=== PATIENT | female | born 1990 | race Caucasian/White ===

== ENCOUNTER 2019-12-21 12:05 | Outpatient (CLI) | payer MEDICAID, SELFPAY ==
[2019-12-21 12:56] LABS: Beta HCG Quantitative < 2.39 mIU/ML
[2019-12-21 13:05] LABS: Free T4 Free Thyroxine 0.82 ng/mL (0.78-2.19)
[2019-12-26 21:36] LABS: FSH 4.2 mIU/mL (***); Progesterone 10.1 ng/mL (***); Prolactin 8.6 ng/mL (***)
[2019-12-27 18:41] LABS: Estradiol, Ultrasensitive 96 pg/mL
== END 2019-12-21 12:06 | disposition home or self-care (01) ==
PROVIDERS: PCP Family Medicine; Visit Provider Family Medicine
DX: N64.3 Galactorrhea not associated with childbirth (principal); N39.0 Urinary tract infection, site not specified; R35.0 Frequency of micturition
CPT/HCPCS: 36415; 82670; 83001; 84144; 84146; 84439; 84443; 84702

== ENCOUNTER 2020-03-23 23:09 | Emergency (ER) | payer OTHER, SELFPAY ==
[2020-03-23 23:12] VITALS: BP 117/73; PULSE 72; RESP 14; TEMP 36.6; O2SAT 97
[2020-03-24] MEDS: KETOROLAC (*BKC) 60 MG/2 ML VIAL IM (00:01)
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
[2020-03-24 00:22] VITALS: BP 120/84; PULSE 70; RESP 20; O2SAT 99
== END 2020-03-24 00:24 | disposition home or self-care (01) ==
PROVIDERS: Emergency Provider Emergency Medicine; PCP Family Medicine
DX: T14.8XXA Other injury of unspecified body region, initial encounter (principal); V49.40XA Driver injured in collision with unspecified motor vehicles in traffic accident, initial encounter
CPT/HCPCS: 96372; 99283; J1885

== ENCOUNTER 2020-05-27 16:07 | Emergency (ER) | payer OTHER, SELFPAY ==
[2020-05-27 16:18] VITALS: BP 109/64; PULSE 93; RESP 16; TEMP 37.3; O2SAT 100
--- NOTE | 2020-05-27 17:10 | ED.EYEPROB ---
HPI - Eye Problem General Chief complaint: Eye Problems Stated complaint: Eye Pain History of Present Illness HPI Narrative: This is a 29-year-old white female who presented to the urgent care today with redness and itching to her left eye and generalized contact dermatitis. According to patient 3 days ago she started developing redness in her left eye. Today she started experiencing itchiness to the left eye. She also noted that her has also started experiencing itchiness to one of his eyes. Patient denies any visual disturbance, eyelid sticking crusting or discharge. She also complains of a generalized rash on her abdominal area upper thighs and armpit with itching . No crusting, oozing, scaling noted..the patient denies SOB, CP, palpitation, extremity numbness, lightheadedness, dizziness, constipation, diarrhea, chills, or fever. Related Data Home Medications Medication Instructions Recorded Confirmed venlafaxine [Effexor XR] 75 mg PO DAILY 05/27/20 05/27/20 Allergies Allergy/AdvReac Type Severity Reaction Status Date / Time Control Pills Allergy Intermediate LIVER Uncoded 05/27/20 16:29 PROBLEM Review of Systems Review of Systems: All systems reviewed & are unremarkable except as noted in HPI and below (10 point system review) [facility] Past Medical History Medical History (Updated 05/27/20 @ 17:06 by DEANA Darden) Anxiety Depression Scoliosis Surgical History Surgical History (Updated 07/20/19 @ 02:37 by Gil Diane) History of classical section History of tonsillectomy Social History Social History (Updated 07/20/19 @ 02:37 by Gil Diane) Smoking status: Never smoker Second hand tobacco smoke exposure: Yes Gender identity (if verbalized by the patient): Female Exam Narrative: Exam Narrative: GENERAL: This is a well-nourished, well-developed patient, in no apparent distress. HEAD: normocephalic, atraumatic. EYES: Left eye with erythema and edema to the conjunctival vision is grossly intact. EARS: External ears normal, auditory canals clear and without drainage, TMs normal without perforation. Hearing grossly intact. NOSE: External nose normal with no obvious nasal discharge, nares without redness, no rhinorrhea. THROAT: Mucous membranes moist, posterior pharynx clear. NECK: Neck supple, non-tender without lymphadenopathy, masses or thyromegaly. CARDIOVASCULAR: Regular rate and rhythm without murmurs, gallops, or rubs. RESPIRATORY: Clear to auscultation. Breath sounds equal bilaterally. No wheezes, rales, or rhonchi. GASTROINTESTINAL: Abdomen soft, non-tender, nondistended. Bowel sounds are active. No hepato-splenomegaly, or palpable masses. No guarding. SKIN: warm, intact small papules on abd, upper thigh and armpit NEURO: awake, alert, and oriented to person, place and time. There were no obvious focal neurologic abnormalities. Steady gait EXTREMITIES: Normal range of motion. No edema. No calf tenderness. Negative Homans sign bilaterally. BACK: Nontender without deformity or crepitance. No flank tenderness. Course Vital Signs Vital signs: Vital Signs Temperature 99.2 F 05/27/20 16:18 Pulse Rate 93 05/27/20 16:18 Respiratory Rate 16 05/27/20 16:18 Blood Pressure 109/64 05/27/20 16:18 Pulse Oximetry 100 05/27/20 16:18 Temperature 99.2 F 05/27/20 16:18 Pulse Rate 93 05/27/20 16:18 Respiratory Rate 16 05/27/20 16:18 Blood Pressure 109/64 05/27/20 16:18 Pulse Oximetry 100 05/27/20 16:18 MDM - Eye Problem Differential Diagnosis Differential diagnosis: Likely corneal abrasion, conjunctivitis, acute iritis, periorbital cellulitis and other (contact dermatitis) Discharge Plan Discharge Clinical Impression: Conjunctivitis Qualifiers: Conjunctivitis type: acute Acute conjunctivitis type: unspecified Laterality: left Qualified Code(s): H10.32 - Unspecified acute conjunctivitis, left eye Contact dermatitis Qualifie
== END 2020-05-27 17:10 | disposition home or self-care (01) ==
PROVIDERS: Emergency Provider Nurse Practitioner
DX: H10.32 Unspecified acute conjunctivitis, left eye (principal); L25.9 Unspecified contact dermatitis, unspecified cause; F41.9 Anxiety disorder, unspecified; F32.9 Major depressive disorder, single episode, unspecified; M41.9 Scoliosis, unspecified
CPT/HCPCS: 99213; G0463

== ENCOUNTER 2021-06-17 16:08 | Emergency (ER) | payer OTHER, SELFPAY ==
[2021-06-17 16:28] VITALS: BP 119/60; PULSE 94; RESP 16; TEMP 37.4; O2SAT 100
== END 2021-06-17 17:10 | disposition left against medical advice (07) ==
PROVIDERS: Emergency Provider Internal Medicine Hematology & Oncology; PCP Family Medicine
DX: Z53.21 Procedure and treatment not carried out due to patient leaving prior to being seen by health care provider (principal)
CPT/HCPCS: 99199

== ENCOUNTER 2021-09-09 10:54 | Emergency (ER) | payer OTHER, SELFPAY ==
[2021-09-09 11:04] VITALS: BP 108/77; PULSE 90; RESP 16; TEMP 36.4; O2SAT 99
--- NOTE | 2021-09-09 11:04 | ED.EAR ---
HPI - Ear Problem General Chief complaint: Ear Stated complaint: ear pain Time Seen by Provider: 09/09/21 11:15 Source: patient Mode of arrival: ambulatory Limitations: no limitations History of Present Illness HPI Narrative: 31-year-old female presented for complaint of bilateral ear pain for about 1 day. Right worse than left, pain is described as pressure. She has been taking aerw-ckn-[id number] unknown congestion medication without relief. Patient states she brought her son here for ear pain and wanted to be checked as well. Denies headache, tinnitus, vertigo, sore throat, nausea, vomiting, cough, fever or chills. MD Complaint: ear pain Related Data Home Medications Medication Instructions Recorded Confirmed venlafaxine [Effexor XR] 75 mg PO DAILY 05/27/20 09/09/21 Allergies Allergy/AdvReac Type Severity Reaction Status Date / Time Control Pills Allergy Intermediate LIVER Uncoded 09/09/21 11:00 PROBLEM Review of Systems Review of Systems: CONSTITUTIONAL: Denies malaise, chills, or fever. EYES: Denies visual changes, redness, or discharge. ENT: Denies rhinorrhea, congestion, sinus pain, and sore throat. Reports ear pain CARDIOVASCULAR: Denies chest pain, palpitations, or edema. RESPIRATORY: Denies cough or dyspnea. GASTROINTESTINAL: Denies abdominal pain, nausea, vomiting, diarrhea SKIN: Denies rash or itching. MUSCULOSKELETAL: Denies myalgia. NEUROLOGIC: Denies headache. All systems reviewed & are unremarkable except as noted in HPI and below PMFSH Past Medical History Medical History (Updated 09/09/21 @ 11:21 by Lupe Schmidt APRN) Anxiety Depression Scoliosis Surgical History Surgical History History of classical section History of tonsillectomy Social History Social History Smoking status: Never smoker Second hand tobacco smoke exposure: Yes Gender identity (if verbalized by the patient): Female Comments At time of signature, agree with nursing past medical, surgical, social and family history. There is no relevant family history pertinent to the presenting complaint Exam Narrative: GENERAL: Well-appearing, well-nourished, and in no acute distress. HEAD: Normocephalic EYES: PERRLA, conjunctivae clear ENT: Nares clear. Mucous membranes moist. TM pearly mary with with light reflex bilaterally; no tragal tenderness. Oropharynx not erythematous without lesions or without exudate, no drooling, no hoarseness, no trismus, uvula midline. NECK: Supple. No lymphadenopathy CHEST: Clear to auscultation, breath sounds equal. No wheezing, rhonchi, rales, or stridor. No respiratory distress, speaks in full sentences. HEART: Regular rate and rhythm. No murmur heard. SKIN: Warm, dry, no rash. NEURO: Alert and oriented x3. PSYCH: Normal mood and affect Course Course Emergency Course: Patient is aware of diagnosis, understands and agrees to treatment plan. Anticipatory guidance given. Patient agrees to follow-up as directed and is aware of reasons to seek care at the emergency department. Portions of this record may have been created with voice recognition software Level of Care: Express Care Visit Vital Signs Vital signs: Reviewed Medical Decision Making MDM Narrative Medical decision making narrative: Differential diagnosis considered: Coronavirus, strep pharyngitis, allergic rhinitis, upper respiratory tract infection, sinusitis, rhinosinusitis, nasopharyngitis, viral pharyngitis, otitis media, otitis externa, eustachian tube dysfunction, foreign body, cerumen impaction. Exam findings show no acute concerns or changes; patient is non-toxic appearing and is in no distress. Patient is appropriate for outpatient treatment and follow-up. Discharge Plan Discharge Clinical Impression: Acute otalgia Qualifiers: Laterality: bilateral Qualified Code(s): H92.03 - Otalg
== END 2021-09-09 11:36 | disposition home or self-care (01) ==
PROVIDERS: Emergency Provider Nurse Practitioner Family; PCP Family Medicine
DX: H92.03 Otalgia, bilateral (principal); F41.9 Anxiety disorder, unspecified; F32.A Depression, unspecified
CPT/HCPCS: 99212; G0463

== ENCOUNTER 2022-10-03 16:23 | Emergency (ER) | payer OTHER, SELFPAY ==
--- NOTE | ~2022-10-03 | US_ITS ---
EXAMINATION: US OB <=14 wk fetus w TV DATE: 10/03/2022 23:24 INDICATION: Pain and vaginal bleeding during first trimester . TECHNIQUE: Real-time pelvic ultrasound utilizing both a transvaginal and transabdominal probe was pe rformed. The interpreting radiologist was not present for the study. COMPARISON: None. FINDINGS: The retroverted uterus measures 7.0 x 4.9 x 3.3 cm. Endometrial complex measures 8 mm in maximal thi ckness at the fundus. No evident intrauterine fluid or gestational sac. The right ovary measures 2.3 x 1.2 x 2.5 cm. The left ovary measures 2.0 x 1.9 x 1.4 cm. Vascular lizzeth w identified in both ovaries on color Doppler. No other abnormal adnexal masses identified. Trace michele unt of likely physiologic free fluid in the cul-de-sac. IMPRESSION: 1. Unremarkable pelvic ultrasound with no evident intrauterine gestational sac. Differential would in clude early, failed or ectopic . Reviewed, dictated and finalized at location A. 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 Unremarkable pelvic ultrasound with no evident intrauterine gestational sac. Differential would include early, failed or ectopic .
[2022-10-03 16:52] VITALS: BP 117/84; PULSE 102; RESP 20; TEMP 36.7; O2SAT 100
[2022-10-03 17:09] LABS: Basophils Percent Auto 0.4 % (0.2-1.2); Eosinophils Absolute Auto 0.1 K/mm3 (0-0.3); Eosinophils Percent Auto 1.4 % (0-4.4); Hematocrit 33.6 % (37.0-47.0); Hemoglobin 11.4 g/dL (12.0-15.0); Immature Granulocyte Absolute 0.01 K/mm3 (0.00-0.031); Immature Granulocyte Percent A 0.2 % (0-0.5); Lymphocytes Absolute Auto 1.11 K/mm3 (0.9-3.2); Lymphocytes Percent Auto 19.9 % (18.3-44.2); Mean Corpuscular HGB Conc 33.9 g/dl (32-36); Mean Corpuscular Hemoglobin 29.9 pg (26-34); Mean Corpuscular Volume 88.2 fl (80-100); Mean Platelet Volume 8.8 fl (7.4-10.4); Monocytes Absolute Auto 0.3 K/mm3 (0.1-0.6); Monocytes Percent Auto 5.7 % (2.6-8.5); Neutrophils Percent Auto 72.4 % (45.5-73.1); Platelet Count Result 241 k/mm3 (150-375); Red Blood Count 3.81 M/mm3 (4.2-5.4); Red Cell Distribution Width 13.7 % (11.5-14.5); White Blood Count 5.6 K/mm3 (4.5-10.0)
[2022-10-03 17:37] LABS: Beta HCG Quantitative 214.54 mIU/ML
[2022-10-03 18:50] VITALS: BP 109/85; PULSE 101; RESP 20; TEMP 36.6; O2SAT 100
[2022-10-03] MEDS: SODIUM CHLORIDE 0.9% IV 1,000 ML 999 ML IV CONT (22:37)
--- NOTE | 2022-10-03 22:38 | ED.PREGNANCY ---
HPI - General Chief complaint: Vaginal Bleeding Stated complaint: I had an 09/10, still bleeding Time Seen by Provider: 10/03/22 22:07 Source: patient Mode of arrival: ambulatory Limitations: no limitations History of Present Illness HPI Narrative: Patient is a 32-year-old female who presents to the ED with report of vaginal bleeding. Patient had an elective with pills at approx 6 weeks gestation on 09/10/22 through the [facility] in [place], [place]. With that , patient would have been A3 (1 prior miscarriage, 1 prior elective 2 years ago). She reports she developed vaginal bleeding a few days after taking the pills, which became heavier 2 weeks later. Patient has had persistent vaginal bleeding since then, intermittently heavy with clots, and at times only spotting. Patient also reports feeling mildly dizzy and having intermittent lower abdominal pain. Patient took another test at home today which was positive which prompted her presentation. Patient states she did not f/u with the clinic after the . She has seen Dr. Ovidio Rincon in the past. Patient denies fever, N/V, urinary sx's. Related Data Home Medications Medication Instructions Recorded Confirmed venlafaxine 75 mg capsule,extended 75 mg PO DAILY 05/27/20 09/09/21 release 24 hr (Effexor XR) Allergies Allergy/AdvReac Type Severity Reaction Status Date / Time Control Pills Allergy Intermediate LIVER Uncoded 09/09/21 11:00 PROBLEM Review of Systems Review of Systems: CONSTITUTIONAL: Denies fever, chills, or sweats. CARDIOVASCULAR: Denies chest pain. RESPIRATORY: Denies dyspnea. GASTROINTESTINAL: See HPI. GENITOURINARY: See HPI. NEUROLOGIC: See HPI. All systems reviewed & are unremarkable except as noted in HPI and below PMFSH Past Medical History Medical History Anxiety Depression Scoliosis Surgical History Surgical History History of classical section History of tonsillectomy Social History Social History Smoking status: Never smoker Second hand tobacco smoke exposure: Yes Gender identity (if verbalized by the patient): Female Exam Narrative: GENERAL: Well appearing, well-nourished, non-toxic, in no acute distress. HEAD: Normocephalic, atraumatic. NECK: Supple. No adenopathy, no masses. RESPIRATORY: Airway patent, respirations nonlabored. Clear to auscultation bilaterally, no rales, rhonchi, wheezing. CARDIOVASCULAR: Regular rate and rhythm without murmurs, rubs, or gallops. Peripheral pulses 2+ and equal bilaterally. ABDOMINAL: Soft, minimal tenderness throughout lower abdomen, nondistended, no hepatosplenomegaly. Normoactive BS. PELVIC: Normal external genitalia. Minimal amount of vaginal bleeding, light pink. No clots seen. Cervix w/o any significant abnormalities, though difficult to visualize entirety of cervix. No abnormal discharge. No significant CMT. MUSCULOSKELETAL: Moves all extremities. Strength/ROM intact without gross deformities. SKIN: Warm, dry, normal color. No rashes. NEURO: A&O X3. Speech clear. Cranial nerves II-XII grossly intact. Steady gait. No ataxic movements. PSYCHIATRIC: Appropriate mood and affect. Normal interaction. Course Vital Signs Vital signs: Vital Signs Temperature 98.1 F 10/03/22 16:52 Pulse Rate 102 H 10/03/22 16:52 Respiratory Rate 20 10/03/22 16:52 Blood Pressure 117/84 10/03/22 16:52 Pulse Oximetry 100 10/03/22 16:52 Oxygen Delivery Room Air 10/03/22 16:52 Temperature 97.8 F 10/03/22 18:50 Pulse Rate 101 H 10/03/22 18:50 Respiratory Rate 20 10/03/22 18:50 Blood Pressure 109/85 10/03/22 18:50 Pulse Oximetry 100 10/03/22 18:50 Oxygen Delivery Room Air 10/03/22 16:52 MDM - OB/Uterine Co
[2022-10-04 00:49] LABS: Appearance Urine Cloudy (Clear); Bacteria Urine Rare /hpf; Bilirubin Urine Negative (Negative); Blood Urine 3+ (Negative); Color Urine Yellow (Yellow); Glucose Urine UA Negative (Negative); Ketones Urine Negative (Negative); Leukocyte Esterase Ur 2+ LEU/UL (Negative); Nitrate Urine Negative (Negative); Non Pathogenic Casts 0-2; Protein Urine Trace mg/dL (Negative); RBC Urine >100 /hpf (0-2); Specific Grav Ur 1.017 (1.001-1.035); Squamous Epithelial Cell Urine Few /hpf (Few); Urobilinogen Urine 0.2 mg/dL (<2.0); WBC Urine >100 /hpf; pH Urine 5.5 (5.0-9.0)
[2022-10-04 00:51] LABS: Alanine Aminotransferase 25 U/L (6-35); Albumin Level 3.4 g/dL (3.5-5.1); Alkaline Phosphatase 76 U/L (38-126); Anion Gap 1 mmol/L (8-16); Aspartate Amino Transferase 26 U/L (14-36); Bilirubin,Total 0.4 mg/dL (0.2-1.3); Blood Urea Nitrogen 7 mg/dL (7-17); Calcium 7.7 mg/dL (8.4-10.2); Carbon Dioxide 29 mmol/L (22-30); Chloride 105 mmol/L (98-107); Estimated CRCL calculation 103 ml/min; Estimated Glomerular Filt Rate > 60; Glucose 89 mg/dL (65-110); Potassium 3.4 mmol/L (3.4-5.0); Sodium 135 mmol/L (137-145)
[2022-10-04 01:14] LABS: Add Urine Microscopic? YES
== END 2022-10-04 01:58 | disposition home or self-care (01) ==
PROVIDERS: Emergency Medicine; Emergency Provider Physician Assistant; PCP Family Medicine
DX: O07.4 Failed attempted termination of pregnancy without complication (principal); N39.0 Urinary tract infection, site not specified; F41.9 Anxiety disorder, unspecified; F32.A Depression, unspecified
CPT/HCPCS: 36415; 76801; 76817; 80053; 81001; 84702; 85025; 85461; 86850; 86900; 86901; 87086; 96361; 96365; 96374; 96375; 99284; J0131; J0696; J7030

== ENCOUNTER 2022-10-05 16:52 | Outpatient (CLI) | payer OTHER, SELFPAY ==
[2022-10-05 17:32] LABS: Beta HCG Quantitative 149.49 mIU/ML
== END 2022-10-05 16:53 | disposition home or self-care (01) ==
PROVIDERS: PCP Family Medicine; Visit Provider Physician Assistant
DX: O20.0 Threatened abortion (principal)
CPT/HCPCS: 36415; 84702

== ENCOUNTER 2022-10-08 00:14 | Day surgery (SDC) | payer OTHER, SELFPAY ==
--- NOTE | 2022-10-07 07:48 | PM.IMHP ---
H&P: HPI History of Present Illness Date/Time: 10/07/22 07:48 Chief Complaint: incomplete baby Narrative: sit 32-year-old multiparous patient who underwent TAB via oral medication with an incomplete miscarriage. Ultrasound shows fluid in possible debris in the uterus and she continues to bleed. She will undergo suction dilatation curettage for completion of this procedure. PMFSH Past Medical History Medical History Anxiety Depression Scoliosis Surgical History Surgical History History of classical section History of tonsillectomy Social History Social History Smoking status: Never smoker Second hand tobacco smoke exposure: Yes Gender identity (if verbalized by the patient): Female Meds Home Medications and Allergies Home Medications Medication Instructions Recorded Confirmed Type venlafaxine 75 mg capsule,extended 75 mg PO DAILY 05/27/20 09/09/21 History release 24 hr (Effexor XR) cephalexin 500 mg capsule 500 mg PO Q6H 7 days #28 caps 10/04/22 Rx Allergies Allergy/AdvReac Type Severity Reaction Status Date / Time Control Pills Allergy Intermediate LIVER Uncoded 09/09/21 11:00 PROBLEM Exam Const: General: cooperative, healthy appearing and comfortable Nutritional Appearance: average body habitus Orientation/consciousness: oriented to person, oriented to place and oriented to time HENMT: Head: normal to inspection Resp: Effort & Inspection: normal respiratory effort Cardio: Rate: regular rate Rhythm: regular rhythm Heart sounds: S1 normal heart sound present and S2 normal heart sound present GI: Inspection: normal to inspection : External Female Exam: normal external appearance Speculum Exam - Vagina: normal appearance of the vagina Speculum Exam - Cervix: Cervical os open and Other cervical findings present ( Active bleeding seen) Bimanual exam- vagina & uterus: enlarged Bimanual Exam- Adnexa, other: normal adnexae Assessment and Plan Assessment and plan (1) Incomplete : Code(s): O03.4 - Incomplete spontaneous without complication Status: Acute Plan suction dilatation curettage
[2022-10-07 08:52] VITALS: BMI 24.5
--- NOTE | 2022-10-07 08:56 | PC.NURSE ---
Report to the Outpatient Waiting Room, entrance under the green pavilion located off [facility], at time 1215 on date 10/08/22. Planned Procedure Time: 1415. Time changes happen often and if your time is changed the preop area will call you the afternoon before. - You and your visitor will be asked to self-screen and do not enter if you have any COVID symptoms. - Only one visitor is requested with a max of two and NO children visitors are allowed at this time. - The patient visitor may be requested to leave or wait in car when not with patient due to distancing restrictions. - A mask is optional within the hospital at this time. Patients may have clear liquids (water, carbonated beverages, clear teas, apple juice) until 3 hours prior to surgery with a maximum of 20 ounces. - No food from midnight until time of surgery Take the following medications with a SIP of water the morning of surgery: LAMOTRIGINE, ANTIBIOTIC, VENLAFAXINE DO NOT STOP ANY OF YOUR OTHER PRESCRIPTION MEDICATIONS PRIOR TO SURGERY?EXCEPT THE FOLLOWING Medications to discontinue per physician: N/A Date to take last dose: N/A Please no make-up, nail afghan, hairspray, perfume, deodorant, or body powder the day of surgery. No jewelry (including any body piercings) or valuables the day of surgery, leave them at home. Please take a shower or bath the night before, or the morning of, surgery with an antibacterial soap. Wear comfortable, loose fitting clothing. - Jewelry must be removed prior to entering the operating room. Rings and piercings that are not removed may be cut off. - The hospital will not accept responsibility for valuables. - Please leave all valuables, including medications, at home the day of surgery. If you are going home after surgery, a licensed local company hazmat driver must drive you home. - NO public transportation without another adult if you receive anesthesia. - We recommend that an adult stay with you for 24 hours following discharge. - We also recommend that you do not drive, make important decision, drink alcoholic beverages, or take any drugs that were not prescribed by your health care provider for at least 24 hours after your discharge time. Follow any additional instructions given to you from your surgeon. If you or anyone in your household have experienced Covid symptoms in the past week, please notify your surgeon or the nurse liaison at the phone number below for possible testing. Telephone instructions given to PT - CRIS EDMOND and asked if any additional questions and then verbalized understanding. Patient advised to call surgeon office or pre surgery nurse liaison [phone] if any additional questions.
[2022-10-08] VITALS (7 sets, daily range): BP systolic 89–121; BP diastolic 44–88; PULSE 74–98; RESP 12–16; TEMP 36.6; O2SAT 100
--- NOTE | 2022-10-08 07:17 | WPDHPUPDATE1 ---
History and Physical Update Update Date/Time: 10/08/22 07:17 History and Physical has been reviewed, including an updated exam of the patient. There are NO changes in the patient's condition. Risks, benefits, and alternatives have been discussed and questions answered. Patient agrees to proceed with procedure.
--- NOTE | 2022-10-08 12:22 | WPDANESEPPF ---
Anes - Initial Pre Proc Eval Procedure: Operation Date: 10/08/22 14:15 Proposed Procedures p Suction Dilation and Curettage - Tobi Rincon MD Date/Time: 10/08/22 12:22 Surgeon: Tobi Rincon MD Pre Op Diagnosis: MISSED AB Patient Data Age: 32 Gender: F Height: 1.55 m Weight: 59 kg Allergies Allergy/AdvReac Type Severity Reaction Status Date / Time Control Pills Allergy Intermediate LIVER Uncoded 10/07/22 08:50 PROBLEM Home Medications Medication Instructions Recorded Confirmed Type venlafaxine 75 mg capsule,extended 75 mg PO DAILY 05/27/20 10/07/22 History release 24 hr (Effexor XR) cephalexin 500 mg capsule 500 mg PO Q6H 7 days #28 caps 10/04/22 10/07/22 Rx dextroamphetamine-amphetamine ER 20 mg PO DAILY 10/07/22 10/07/22 History 20 mg 24hr capsule,extend release lamotrigine 200 mg tablet 200 mg PO DAILY 10/07/22 10/07/22 History hydrocodone 5 mg-acetaminophen 325 1 tablet PO Q4H PRN pain #20 tabs 10/08/22 Rx mg tablet Patient hx anesthesia problems: none Family hx anesthesia problems: none Results Review: All pre-operative results and documents have been reviewed as part of the pre-operative evaluation. [facility] Past Medical History Medical History Anxiety Depression Scoliosis Surgical History Surgical History History of classical section History of tonsillectomy Social History Social History Smoking status: Never smoker Second hand tobacco smoke exposure: Yes Alcohol intake: never Substance use: current Substance use type: marijuana Living arrangements: with family Additional living arrangements comments: CHILDREN Gender identity (if verbalized by the patient): Female Spiritual care concerns: No Anes - Eval Final PreProcedure Day of Procedure 10/08/22 12:22 Patient weight: normal Heart: regular rate and rhythm Lungs: clear to auscultation Airway: Mallampati scale class II Neurological: alert and oriented Last oral intake: >/= 8 hours ASA classification: II Emergent: no Anesthetic plan: proceed Anesthesia type and monitoring: general GIVS and standard monitoring Results Review: All pre-operative results and documents have been reviewed as part of the pre-operative evaluation. Informed Consent: The patient's anesthetic plan and its attendant risks and benefits were discussed with the patient/family/POA. Questions were solicited and answers provided to the satisfaction of the patient/family/POA.
[2022-10-08] MEDS: ACETAMINOPHEN 500 MG TABLET 1000 MG PO (12:30)
[2022-10-08] MEDS: LACTATED RINGERS 1,000 ML 30 ML IV CONT (12:30)
[2022-10-08] MEDS: ceFAZolin 2 GM/D5W 50 ML 2 GM/50 ML BAG IVPB (12:48)
[2022-10-08] MEDS: LIDOCAINE HCL 1% LOCAL INJ 10 ML VIAL INFILTRATE (13:02)
--- NOTE | 2022-10-08 13:05 | P.OP_ITS ---
Procedure Note - Detailed Date of Procedure 10/08/22 Pre-op Diagnosis MISSED AB Post-op Diagnosis Same Procedure Performed Suction dilatation and curettage Surgeon Tobi Rincon MD Anesthesia MAC and Local Indications this is a 32-year-old female incomplete be oral termination. Findings Uterus was severely retroverted and sounded to 9cm in depth. Tissue was seen consistent small products of conception Description of Procedure patient was prepped draped in the normal sterile fashion placed in the dorsal lithotomy position. Under excellent IV sedation a weighted speculum was placed in posterior fornix vagina. Anterior lip of the cervix grasped with a single- tooth tenaculum. 2.5cc of 1% xylocaine anesthesia placed at 2, 4, 8, 10:00 a.m. of the cervix. Uterus sounded to 9cm and was retroverted. Serial dilatation with fragmented dilators performed followed passage of the 9. Suction curette removing a small amount of placental tissue. When a good grating sound was heard the instruments were withdrawn the patient was awakened with recovery satisfactory condition. All sponge, needle, instrument counts were correct. There were no immediate complications Estimated Blood Loss 25 Drains No Packing No Pathology Yes Complications No immediate complications Condition Stable Disposition PACU
--- NOTE | 2022-10-08 15:54 | SUR.PHASEII ---
Patient's vitals are stable and she is unhooked from the monitors and just waiting on a ride.
--- NOTE | 2022-10-08 16:19 | SUR.PHASEII ---
1330: Patient has 0+ blood type. No Rhogam needed.
== END 2022-10-08 17:35 | disposition home or self-care (01) ==
PROVIDERS: PCP Family Medicine; Visit Provider Obstetrics & Gynecology
PROC: (CPT 59812; principal; 2022-10-08 14:15)
DX: O03.4 Incomplete spontaneous abortion without complication (principal)
CPT/HCPCS: 59812; 88305; A9270; J0690; J2250; J2704; J3010; J7120

== ENCOUNTER 2023-04-28 18:13 | Emergency (ER) | payer OTHER, SELFPAY ==
[2023-04-28 18:23] VITALS: BP 113/65; PULSE 91; RESP 18; TEMP 36.6; O2SAT 100
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
== END 2023-04-28 18:56 | disposition home or self-care (01) ==
PROVIDERS: Emergency Provider Nurse Practitioner Family; PCP Family Medicine
DX: S16.1XXA Strain of muscle, fascia and tendon at neck level, initial encounter (principal); V43.52XA Car driver injured in collision with other type car in traffic accident, initial encounter
CPT/HCPCS: 99213; G0463

== ENCOUNTER 2023-12-06 17:54 | Emergency (ER) | payer OTHER, SELFPAY ==
--- NOTE | 2023-12-06 18:04 | ED.URI ---
HPI - URI/Sore Throat General Chief Complaint: Upper Respiratory Infection Stated Complaint: Sinus Time Seen by Provider: 12/06/23 17:57 Source: patient Mode of arrival: ambulatory Limitations: no limitations History of Present Illness HPI Narrative: Patient is a 33-year-old female that presents with 2 weeks of sinus pressure, ear ache and congestion. Denies any fever, chills, nausea, vomiting, diarrhea cough, sore throat. Has not taken anything for symptoms. Related Data Allergies Allergy/AdvReac Type Severity Reaction Status Date / Time Control Pills Allergy Intermediate LIVER Uncoded 12/06/23 18:01 PROBLEM Review of Systems Review of Systems: All systems reviewed & are unremarkable except as noted in HPI and below Constitutional: Constitutional: Denies body ache(s), Denies chills, Denies fatigue, Denies fever(s), Denies headache(s), Denies malaise and Denies weakness Eyes: Eyes: Denies blurry vision, Denies itchy eyes and Denies loss of vision ENT: Reports otalgia, Denies headache(s), Reports nasal congestion, Reports sinus pain, Reports sinus pressure and Denies sore throat Cardiovascular: Cardiovascular: Denies chest pain, Denies irregular heart rhythm and Denies dyspnea Respiratory: Respiratory: Reports cough and Denies dyspnea Gastrointestinal: Gastrointestinal: Denies abdominal pain, Denies diarrhea, Denies nausea and Denies vomiting Musculoskeletal: Musculoskeletal: Denies back pain, Denies myalgias and Denies arthralgias Integumentary/Breasts: Skin/Breast: Denies pruritus and Denies rash Neurologic: Denies headache(s), Denies loss of vision and Denies weakness Psychiatric: Psychiatric: Reports no additional psychiatric complaints Endocrine: Endocrine: Denies fatigue Allergic/Immunologic: Allergic/Immunologic: Denies itchy eyes PMFSH Past Medical History Medical History Anxiety Depression Scoliosis Surgical History Surgical History History of classical section History of tonsillectomy Family History Family History Father Alcohol abuse Depression Anxiety Mother Asthma Anxiety Depression Sibling Asthma Depression Anxiety Grandparent Asthma Hypertension Anxiety Depression Heart problem Social History Social History Smoking status: Never smoker Second hand tobacco smoke exposure: Yes Alcohol intake: never Substance use: current Substance use type: marijuana Living arrangements: with family Additional living arrangements comments: CHILDREN Gender identity (if verbalized by the patient): Female Spiritual care concerns: No Comments At time of signature, agree with nursing past medical, surgical, social and family history. There is no relevant family history pertinent to the presenting complaint. Exam Const: General: cooperative, healthy appearing, comfortable, no acute distress and well nourished Nutritional Appearance: well nourished Orientation/consciousness: patient oriented x3 Limitations: no limitations HENMT: Head: normal to inspection, normocephalic and atraumatic Ears: hearing grossly normal bilaterally, external ears normal, TM's normal bilaterally, EAC's normal and no periauricular adenopathy Face/Nose/Sinus: Normal external nose present, Abnormal mucous membranes and turbinates present erythematous bilateral and diffuse, normal facial exam, face symmetric and Facial tenderness on exam of face and sinuses Face and sinus: normal facial exam, sinuses nontender and face symmetric Mouth: Yes Normal oral and palatal mucosa present, Yes lip normal, Yes tongue normal, Yes Normal salivary glands and ducts present, Yes oropharynx normal and Yes moist mucous membranes Teeth and gingiva: dentition normal Throat: pos
[2023-12-06 18:15] VITALS: BP 131/113; PULSE 98; RESP 16; TEMP 36.8; O2SAT 100
== END 2023-12-06 19:05 | disposition home or self-care (01) ==
PROVIDERS: Emergency Provider Nurse Practitioner Family; PCP Family Medicine
DX: J01.40 Acute pansinusitis, unspecified (principal); F41.8 Other specified anxiety disorders
CPT/HCPCS: 99213; G0463